=== PATIENT | female | born 1955 | race Caucasian/White ===

== ENCOUNTER 2016-12-29 10:06 | Day surgery (SDC) | payer BC ==
[2016-12-28 10:14] VITALS: BMI 27.0
[~2016-12-29 10:06] MED LIST: LACTATED RINGERS 1,000 ML IV SCH
[2016-12-29] MEDS ORDERED: LIDOCAINE 1% 20 ML VIAL (10MG/ML) FOR IV START INTRADERMA ONE (11:50)
[2016-12-29] MEDS ORDERED: PROPOFOL 10 MG/ML 20 ML VIAL IV ONE (11:56)
[2016-12-29 11:58] VITALS: RESP 16; TEMP 97.6
--- NOTE | 2016-12-29 12:13 | P.PCN ---
Date of Procedure: 12/29/16 Preoperative Diagnosis: Postoperative Diagnosis: Procedure(s) Performed: BRIEF HISTORY: Patient is a 61-year-old pleasant white female, scheduled for an elective colonoscopy as a part of screening for colorectal neoplasia. PROCEDURE PERFORMED: Colonoscopy. PREOPERATIVE DIAGNOSIS: Screening for Colon cancer. IV sedation per Anesthesia. PROCEDURE: After informed consent was obtained, the patient, was brought into the endoscopy unit. IV sedation was administered by Anesthesia under continuous monitoring. Digital rectal examination was normal. Initially the Olympus CF- 160 flexible video colonoscope was then inserted in the rectum, gradually advanced into the cecum without any difficulty. Careful examination was performed as the scope was gradually being withdrawn. Ileocecal valve and the appendiceal orifice were visualized and appeared normal. Prep was excellent. Mucosa of the cecum, ascending colon, transverse colon, descending colon, sigmoid colon, and rectum appeared normal. Scattered sigmoid diverticulosis. Retroflexion was performed in the rectum and no lesions were seen. The patient tolerated the procedure well. IMPRESSION: Normal-appearing colon from rectum to cecum with no evidence of colorectal neoplasia Scattered sigmoid diverticulosis. RECOMMENDATIONS: Findings of this examination were discussed with the patient as well as a family. She was advised to have a repeat screening colonoscopy in 10 years. Implants: Indications for Procedure: Operative Findings: Description of Procedure:
[2016-12-29 12:34] VITALS: BP 125/76; PULSE 74
== END 2016-12-29 12:57 | disposition home or self-care (01) ==
LOC: ORWHC2ENDO 10:06
PROVIDERS: ATTEND Internal Medicine Gastroenterology
DX: Z12.11 Encounter for screening for malignant neoplasm of colon (principal); K57.30 Diverticulosis of large intestine without perforation or abscess without bleeding; E78.5 Hyperlipidemia, unspecified; K21.9 Gastro-esophageal reflux disease without esophagitis; Z79.82 Long term (current) use of aspirin; Z79.899 Other long term (current) drug therapy
CPT/HCPCS: J2704; G0121; 45378

== ENCOUNTER → 2017-12-17 | Outpatient (CLI) | payer BC ==
--- NOTE | 2017-12-18 05:30 | US ---
EXAMINATION TYPE: US carotid duplex BILAT DATE OF EXAM: 12/17/2017 COMPARISON: NONE CLINICAL HISTORY: 63-year-old female R09.89 RIGHT CAROTID BRUIT. Bruit per order. No HTN. High chol esterol. No surgeries. TECHNIQUE: Carotid duplex ultrasound examination. Indirect Doppler criteria was utilized. FINDINGS: EXAM MEASUREMENTS: RIGHT: Peak Systolic Velocity (PSV) cm/sec ----- Right CCA: 86.6 ----- Right ICA: 76.5 ----- Right ECA: 93.2 ICA/CCA ratio: 0.9 RIGHT: End Diastole cm/sec ----- Right CCA: 30.4 ----- Right ICA: 37.2 ----- Right ECA: 19.4 LEFT: Peak Systolic Velocity (PSV) cm/sec ----- Left CCA: 93.2 ----- Left ICA: 76.5 ----- Left ECA: 84.3 ICA/CCA ratio: 0.8 LEFT: End Diastole cm/sec ----- Left CCA: 21.6 ----- Left ICA: 29.3 ----- Left ECA: 12.7 VERTEBRALS (direction of flow): Right Vertebral: Antegrade Left Vertebral: Antegrade Rhythm: Normal Artificial Limb Maker notes: No wall thickening, elevated velocities, significant stenosis or plaque. IMPRESSION: No hemodynamically significant stenosis appreciated in either internal carotid artery. Criteria for Assigning % of Stenosis / Diameter reduction (Estimation based on the indirect measurements of the internal carotid artery velocities (ICA PSV). 1. Normal (no stenosis)=ICA PSV < 125 cm/s: ratio < 2.0: ICA EDV<40 cm/s. 2. Less than 50% stenosis=ICA PSV < 125 cm/s: ratio < 2.0: ICA EDV<40 cm/s. 3. 50 to 69% stenosis=ICA PSV of 125 to 230 cm/s: ration 2.0 ? 4.0: ICA EDV 40-100 cm/s. 4. Greater than 70% stenosis to near occlusion= ICA PSV > 230 cm/s: ratio > 4.0: ICA EDV > 100 cm/s. 5. Near occlusion= ICA PSV velocities may be low or undetectable: variable ratio and ICA EDV. 6. Total occlusion=unable to detect flow.
== END | disposition home or self-care (01) ==
LOC: RADUSWWP 15:29
PROVIDERS: ATTEND Internal Medicine
DX: R09.89 Other specified symptoms and signs involving the circulatory and respiratory systems (principal)
CPT/HCPCS: 93880

== ENCOUNTER → 2018-12-30 | Outpatient (CLI) | payer BC ==
--- NOTE | 2018-12-30 15:00 | US ---
EXAMINATION TYPE: US carotid duplex BILAT DATE OF EXAM: 12/30/2018 COMPARISON: Carotid ultrasound December 17, 2017 CLINICAL HISTORY: R09.89 Rt Carotid Bruit. Bruit EXAM MEASUREMENTS: RIGHT: Peak Systolic Velocity (PSV) cm/sec ----- Right CCA: 75.0 ----- Right ICA: 75.0 ----- Right ECA: 79.3 ICA/CCA ratio: 1.0 RIGHT: End Diastole cm/sec ----- Right CCA: 28.5 ----- Right ICA: 31.4 ----- Right ECA: 14.0 LEFT: Peak Systolic Velocity (PSV) cm/sec ----- Left CCA: 72.1 ----- Left ICA: 73.5 ----- Left ECA: 88.1 ICA/CCA ratio: 1.0 LEFT: End Diastole cm/sec ----- Left CCA: 19.8 ----- Left ICA: 24.1 ----- Left ECA: 12.5 VERTEBRALS (direction of flow): Right Vertebral: Antegrade Left Vertebral: Antegrade Rhythm: Normal Grayscale images show no significant plaque at carotid bulb level bilaterally IMPRESSION: No hemodynamic significant stenosis in either internal carotid artery. No significant ch mandy from prior. Criteria for Assigning % of Stenosis / Diameter reduction (Estimation based on the indirect measurements of the internal carotid artery velocities (ICA PSV). 1. Normal (no stenosis)=ICA PSV < 125 cm/s: ratio < 2.0: ICA EDV<40 cm/s. 2. Less than 50% stenosis=ICA PSV < 125 cm/s: ratio < 2.0: ICA EDV<40 cm/s. 3. 50 to 69% stenosis=ICA PSV of 125 to 230 cm/s: ration 2.0 ? 4.0: ICA EDV 40-100 cm/s. 4. Greater than 70% stenosis to near occlusion= ICA PSV > 230 cm/s: ratio > 4.0: ICA EDV > 100 cm/s. 5. Near occlusion= ICA PSV velocities may be low or undetectable: variable ratio and ICA EDV. 6. Total occlusion=unable to detect flow.
== END | disposition home or self-care (01) ==
LOC: RADUSWWP 14:09
PROVIDERS: ATTEND Internal Medicine
DX: R09.89 Other specified symptoms and signs involving the circulatory and respiratory systems (principal)
CPT/HCPCS: 93880

== ENCOUNTER → 2021-12-23 | Outpatient (CLI) | payer MEDICARE ==
--- NOTE | 2021-12-23 15:00 | US ---
EXAMINATION TYPE: US carotid duplex BILAT DATE OF EXAM: 12/23/2021 COMPARISON: NONE CLINICAL HISTORY: R09.89 BRUIT OF CAROTID ARTERY. TECHNIQUE: Carotid duplex ultrasound examination. Indirect Doppler criteria was utilized. FINDINGS: EXAM MEASUREMENTS: RIGHT: Peak Systolic Velocity (PSV) cm/sec ----- Right CCA: 73.2 ----- Right ICA: 84.3 ----- Right ECA: 60.9 ICA/CCA ratio: 1.2 RIGHT: End Diastole cm/sec ----- Right CCA: 24.8 ----- Right ICA: 37.2 ----- Right ECA: 10.4 LEFT: Peak Systolic Velocity (PSV) cm/sec ----- Left CCA: 80.1 ----- Left ICA: 70.3 ----- Left ECA: 85.3 ICA/CCA ratio: 0.9 LEFT: End Diastole cm/sec ----- Left CCA: 23.3 ----- Left ICA: 25.8 ----- Left ECA: 16.0 VERTEBRALS (direction of flow): Right Vertebral: Antegrade Left Vertebral: Antegrade Rhythm: Normal FUR TRIMMING MACHINE OPERATOR NOTES: Mild atherosclerotic changes without significant velocity increases. IMPRESSION: 1. Intimal thickening without significant flow-limiting stenosis. Criteria for Assigning % of Stenosis / Diameter reduction (Estimation based on the indirect measurements of the internal carotid artery velocities (ICA PSV). 1. Normal (no stenosis)=ICA PSV < 125 cm/s: ratio < 2.0: ICA EDV<40 cm/s. 2. Less than 50% stenosis=ICA PSV < 125 cm/s: ratio < 2.0: ICA EDV<40 cm/s. 3. 50 to 69% stenosis=ICA PSV of 125 to 230 cm/s: ration 2.0 ? 4.0: ICA EDV 40-100 cm/s. 4. Greater than 70% stenosis to near occlusion= ICA PSV > 230 cm/s: ratio > 4.0: ICA EDV > 100 cm/s. 5. Near occlusion= ICA PSV velocities may be low or undetectable: variable ratio and ICA EDV. 6. Total occlusion=unable to detect flow.
== END | disposition home or self-care (01) ==
LOC: RADUSWWP 08:53
PROVIDERS: ATTEND Internal Medicine
DX: R09.89 Other specified symptoms and signs involving the circulatory and respiratory systems (principal)
CPT/HCPCS: 93880

== ENCOUNTER → 2021-12-30 | Outpatient (CLI) | payer MEDICARE ==
--- NOTE | 2021-12-30 18:17 | CA ---
Stress Echo Report Vilma Damon Age: 66 Gender: F : 1955 Exam Date: 12/30/2021 09:34 Exam Location: [facility] Ht (in): 68 Wt (lb): 180 Ordering Physician: Hellen Cerda MD Referring Physician: HELLEN CERDA,, Catheter Finisher And Inspector: María Frias RDCS Technologist Procedure CPT: Indication: R07.89 Atypical Chest Pain ICD-9 Codes: Rhythm: Patient History: Cholesterol, Fm hx Cardiac Medications: Estradiol,chol. med, diflucen,dioxetine,naproxen,omepr azole,asa Medications in past 24 hours: Contrast: Stress Results Protocol: Catarino Total dose(mL): Exercise Duration (min:sec): [address] Depression (mm): Angina Score: [place] Score: METS: 3.4 Resting HR: 92 Resting BP: 154 / 81 Peak HR: 141 Peak BP: / 75 Max Predicted HR: 154 92 % Max Predicted HR Target HR: 131 Double Product: Stress Summary: BP Response: Reason for Termination: Pt reached target hr. Cardiac Symptoms: Sob ECG Analysis Resting ECG: Left Bundle Branch Block. Stress ECG: Arrhythmia: Left Bundle Branch Block. , Occasional PVCs Echo Analysis Resting Echo: Peak Echo Analysis: MEASUREMENTS (Male/Female) Normal Values CONCLUSIONS Baseline EKG revealed normal sinus rhythm with a IVCD pattern of LBBB type. Patient walked for 2 minutes on a standard Catarino protocol and maximal heart rate was 1 40 bpm. She delivered fatigue and shortness of breath. This is inconclusive stress test with extremely limp x-rays capacity Baseline echo images revealed global decrease in contractility with estimated ejection fraction about 35% by visual inspection. After walking 2 minutes and a heart rate of 1 40 bpm ejection fraction was pretty much unchanged a modestly improved maybe 40% with global decrease in contractility was noted. This patient probably has nonischemic cardiomyopathy. I suggested that she have cardiac catheterization and follow-up with cardiology. I also communicated with her PCP. She will be seen by cardiology the next one week. Dr. Janette Earl MD (Electronically Signed) Final Date: 30 December 2021 18:16
--- NOTE | 2021-12-30 20:15 | CA ---
Transthoracic Echo Report Name: Vilma Damon Age: 66 Gender: F : 1955 Exam Date: 12/30/2021 10:18 Exam Location: [place] [facility] Ht (in): 68 Wt (lb): 180 Ordering Physician: Janette Earl MD ([id number]) Attending/Referring Phys: Salicylic Acid Blender María Frias RDCS Procedure CPT: Indications: cardiomyopathy Cardiac Hx: Chol, Fm hx Technical Quality: Good Contrast 1: Total Dose (mL): Contrast 2: Total Dose (mL): MEASUREMENTS (Male / Female) Normal Values 2D ECHO LV Diastolic Diameter PLAX 4.4 cm 4.2 - 5.9 / 3.9 - 5.3 cm LV Systolic Diameter PLAX 3.9 cm IVS Diastolic Thickness 0.8 cm 0.6 - 1.0 / 0.6 - 0.9 cm LVPW Diastolic Thickness 1.0 cm 0.6 - 1.0 / 0.6 - 0.9 cm LV Relative Wall Thickness 0.4 RV Internal Dim ED PLAX 2.6 cm LV Diastolic Volume MOD BP 87.0 cm??? 67 - 155 / 56 - 104 cm??? LV Systolic Volume MOD BP 59.4 cm??? 22 - 58 / 19 - 49 cm??? LV Ejection Fraction MOD BP 31.8 % >= 55 % LV Diastolic Volume MOD 4C 93.0 cm??? LV Systolic Volume MOD 4C 62.3 cm??? LV Ejection Fraction MOD 4C 33.0 % LV Diastolic Length 4C 7.5 cm LV Systolic Length 4C 6.2 cm LV Diastolic Volume MOD 2C 82.5 cm??? LV Systolic Volume MOD 2C 51.2 cm??? LV Ejection Fraction MOD 2C 37.9 % LV Diastolic Length 2C 7.5 cm LV Systolic Length 2C 7.0 cm LA Volume 42.1 cm??? 18 - 58 / 22 - 52 cm??? M-MODE Aortic Root Diameter MM 2.6 cm LA Systolic Diameter MM 3.2 cm LA Ao Ratio MM 1.2 MV E Point Septal Separation 1.3 cm AV Cusp Separation MM 2.0 cm DOPPLER AV Peak Velocity 101.5 cm/s AV Peak Gradient 4.1 mmHg AI Peak Velocity 243.1 cm/s AI Peak Gradient 23.6 mmHg AI Pressure Half Time 594.1 ms MV Area PHT 8.1 cm??? MR Peak Velocity 323.3 cm/s MR Peak Gradient 41.8 mmHg Mitral E Point Velocity 155.4 cm/s Mitral A Point Velocity 60.5 cm/s Mitral E to A Ratio 2.6 MV Deceleration Time 94.1 ms MV E' Velocity 3.7 cm/s Mitral E to MV E' Ratio 41.9 TR Peak Velocity 93.3 cm/s TR Peak Gradient 3.5 mmHg Right Ventricular Systolic Press 8.3 mmHg FINDINGS Left Ventricle Mildly increased posterior wall thickness. Mildly increased left ventricular systolic volume. Moderately decreased left ventricular ejection fraction. Left ventricular ejection fraction is estimated at 30-35 %. Mid Septum, Mid to basal inferoseptal is hypokinetic. Grade 3 diastolic dysfunction. Left Bundle branch block. Right Ventricle The right ventricle is normal in size and function. Right Atrium The right atrium is normal in size. Left Atrium The left atrium is normal in size. Mitral Valve Structurally normal mitral valve without significant stenosis or prolapse. There is mild mitral regurgitation. Aortic Valve Structurally normal aortic valve without significant sclerosis or stenosis. There is mild aortic regurgitation. Tricuspid Valve Structurally normal tricuspid valve without significant stenosis. Pulmonary artery systolic pressure is normal. Mild tricuspid regurgitation. Pulmonic Valve Structurally normal pulmonic valve without significant stenosis. There is no pulmonic regurgitation. Pericardium Normal pericardium without effusion. Aorta Normal aortic root dimension. CONCLUSIONS Left ventricle is of a normal size with hypokinesia of the mid and proximal septum as well as inferobasal wall. There is also global decrease in contractility yesterday ejection fraction is about 35%. No pericardial effusion no significant abnormality on Doppler exam Previewed by: Dr. Janette Earl MD (Electronically Signed) Final Date: 30 December 2021 20:15
== END | disposition home or self-care (01) ==
LOC: RADNMMAIN 09:00
PROVIDERS: ATTEND Internal Medicine
DX: R07.89 Other chest pain (principal)
CPT/HCPCS: 93306; 93351

== ENCOUNTER → 2022-01-03 | Outpatient (CLI) | payer MEDICARE ==
[2022-01-03 18:26] LABS: HCT 47.3 % (37.2-46.3); HGB 14.9 g/dL (12.0-15.0); MCH 30.3 pg (27.0-32.0); MCHC 31.5 g/dL (32.0-37.0); MCV 96.3 fL (80.0-97.0); Mean Platelet Volume 10.8 fL (9.5-12.2); NRBC Per 100 WBC 0 /100 WBCS (0.0-0.0); Platelet Count 268 X 10*3/uL (140-440); RBC 4.91 X 10*6/uL (4.10-5.20); WBC 4.58 X 10*3/uL (4.50-10.00)
[2022-01-03 18:41] LABS: African American GFR (CKD) 78.7 (60.0-200.0); Anion Gap 11.5 mmol/L (10.00-18.00); Blood Urea Nitrogen 20.1 mg/dL (9.0-27.0); Carbon Dioxide 26.2 mmol/L (20.0-27.5); Non-African American GFR(CKD) 67.9 (60.0-200.0); Potassium 3.9 mmol/L (3.5-5.5)
== END | disposition home or self-care (01) ==
LOC: LABWHC1 11:08
PROVIDERS: ATTEND Internal Medicine Interventional Cardiology
DX: Z01.812 Encounter for preprocedural laboratory examination (principal); I42.0 Dilated cardiomyopathy
CPT/HCPCS: 36415; 80051; 82565; 84520; 85027

== ENCOUNTER → 2022-03-21 | Outpatient (CLI) | payer MEDICARE ==
[2022-03-21 14:23] LABS: Basophils # (A) 0.1 k/uL (0-0.2); Basophils % (A) 1 %; Eosinophils # (A) 0.3 k/uL (0-0.7); Eosinophils % (A) 7 %; HCT 44.1 % (34.0-46.0); HGB 14.5 gm/dL (11.4-16.0); Lymphocytes # (A) 1.4 k/uL (1.0-4.8); Lymphocytes % (A) 31 %; MCH 31.7 pg (25.0-35.0); MCHC 32.8 g/dL (31.0-37.0); MCV 96.5 fL (80.0-100.0); Mean Platelet Volume 8.2; Monocytes # (A) 0.5 k/uL (0-1.0); Monocytes % (A) 10 %; Neutrophils # (A) 2.3 k/uL (1.3-7.7); Neutrophils % (A) 48 %; Platelet Count 223 k/uL (150-450); RBC 4.57 m/uL (3.80-5.40); RDW 13.2 % (11.5-15.5); WBC 4.7 k/uL (3.8-10.6)
[2022-03-21 19:12] LABS: Hepatitis A Antibody IgM Nonreactive (Nonreactive); Hepatitis B Core IgM Nonreactive (Nonreactive); Hepatitis B Surface Antigen Nonreactive (Nonreactive); Hepatitis C IgG Antibody Nonreactive (Nonreactive)
[2022-03-21 19:30] LABS: Protein, Total 6.4 g/dL (6.2-8.2)
[2022-03-21 19:35] LABS: LDH 236 U/L (120-246)
[2022-03-21 20:05] LABS: Vitamin B12 >3600.0 pg/mL (200.0-944.0)
[2022-03-22 14:01] LABS: Albumin 3.71 g/dL (3.80-4.90); Gamma Globulin 0.93 g/dL (0.70-1.50)
== END | disposition home or self-care (01) ==
LOC: LABWHC1 13:13
PROVIDERS: ATTEND Internal Medicine
DX: D72.819 Decreased white blood cell count, unspecified (principal)
CPT/HCPCS: 36415; 80074; 82607; 82746; 83615; 84165; 85025; 86038; 87390

== ENCOUNTER → 2023-03-13 | Outpatient (CLI) | payer MEDICARE ==
[2023-03-13 18:11] LABS: Basophils # (A) 0.04 X 10*3/uL (0.00-0.10); Basophils % (A) 0.6 %; Eosinophils # (A) 0.05 X 10*3/uL (0.04-0.35); Eosinophils % (A) 0.7 %; HCT 50.3 % (37.2-46.3); HGB 16.2 g/dL (12.0-15.0); Lymphocytes # (A) 1.65 X 10*3/uL (0.90-5.00); Lymphocytes % (A) 23.8 %; MCH 32.5 pg (27.0-32.0); MCHC 32.2 g/dL (32.0-37.0); MCV 100.8 FL (80.0-97.0); Mean Platelet Volume 11.4 FL (9.5-12.2); Monocytes # (A) 0.88 X 10*3/uL (0.20-1.00); Monocytes % (A) 12.7 %; NRBC Per 100 WBC 0 X 10*3/uL (0.00-0.01); Neutrophils # (A) 4.26 X 10*3/uL (1.80-7.70); Neutrophils % (A) 61.6 %; Platelet Count 278 X 10*3/uL (140-440); RBC 4.99 X 10*6/uL (4.10-5.20); RDW 13.7 % (11.5-14.5); WBC 6.92 X 10*3/uL (4.50-10.00)
[2023-03-13 18:39] LABS: Chol/HDL Ratio 3.93 Ratio; LDL Cholesterol,Calculated 94.7 mg/dL (0.0-131.0); Magnesium 2.1 mg/dL (1.5-2.4)
[2023-03-13 19:31] LABS: ALT 27 U/L (8-44); AST 56 U/L (13-35); Albumin 4.2 g/dL (3.8-4.9); Albumin/Globulin Ratio 1.45 Ratio (1.60-3.17); Alkaline Phosphatase 86 U/L (41-126); BUN/Creat Ratio 26.25 Ratio (12.00-20.00); Calcium 9.9 mg/dL (8.7-10.3); Chloride 103 mmol/L (96-109); Globulin 2.9 g/dL (1.6-3.3); Glucose 95 mg/dL (70-110); Potassium 5.3 mmol/L (3.5-5.5); Sodium 137 mmol/L (135-145); Total Bilirubin 0.6 mg/dL (0.3-1.2); Total Protein 7.1 g/dL (6.2-8.2)
== END | disposition home or self-care (01) ==
LOC: LABWHC1 08:13
PROVIDERS: ATTEND Internal Medicine
DX: Z00.00 Encounter for general adult medical examination without abnormal findings (principal); Z11.59 Encounter for screening for other viral diseases; E78.2 Mixed hyperlipidemia
CPT/HCPCS: 36415; 80053; 80061; 83735; 84443; 85025; 86803